=== PATIENT | male | born 1970 | race Caucasian/White ===

== ENCOUNTER 2020-05-04 12:14 | Inpatient (IN) | payer MEDICAID ==
[~2020-05-04] VITALS: Ht 188 cm; Wt 152.9 kg
[2020-05-04] VITALS (7 sets, daily range): BP systolic 95–145; BP diastolic 53–75
[2020-05-04] MEDS ORDERED: IV NORMAL SALINE 500 ML BAG IV ONE (12:30)
[2020-05-04] MEDS ORDERED: DOXYCYCLINE HYCLATE IV 100 MG in IV DEXTROSE 5% 250 ML IV ONE (12:30)
[2020-05-04] MEDS ORDERED: ALBUTEROL SULFATE 2.5 MG/3 ML NEBU NEB ONE ×2 (12:30)
[2020-05-04] MEDS ORDERED: methylPREDNISolone SOD SUCC 125 MG/2 ML VIAL IV ONE (12:30)
[2020-05-04] MEDS ORDERED: POTA-10 PO (12:38)
[2020-05-04] MEDS ORDERED: DOXA4TAB3 PO (12:38)
[2020-05-04] MEDS ORDERED: AMLO10TA7 PO (12:38)
[2020-05-04] MEDS ORDERED: CLON0.1T PO (12:38)
[2020-05-04] MEDS ORDERED: EPLE50TA9 PO (12:38)
[2020-05-04] MEDS ORDERED: CALC0.253 PO (12:38)
[2020-05-04] MEDS ORDERED: ATOR20TA PO (12:38)
[2020-05-04] MEDS ORDERED: LABE100T5 PO (12:38)
[2020-05-04] MEDS ORDERED: HYDR25TA4 PO (12:38)
[2020-05-04] MEDS ORDERED: ACET-73 PO (12:38)
[2020-05-04] MEDS ORDERED: LOSA100T31 PO (12:38)
[2020-05-04] MEDS ORDERED: CEFEPIME HCL 2 G in IV DEXTROSE 5% 100 ML IV ONE (12:45)
[2020-05-04] MEDS ORDERED: methylPREDNISolone SOD SUCC 125 MG/2 ML VIAL ONE (12:51)
[2020-05-04] MEDS ORDERED: CEFEPIME HCL 1 G VIAL ONE (12:51)
[2020-05-04] MEDS ORDERED: ALBUTEROL SULFATE 2.5 MG/3 ML NEBU ONE (12:51)
[2020-05-04 12:58] LABS: BASOPHILS % (AUTO) 0.4 % (0.0-2.0); HEMATOCRIT 26.7 % (36.7-47.1); HEMOGLOBIN 8.8 g/dL (12.5-16.3); LYMPHOCYTES # (AUTO) 0.6 K/uL (20.0-40.0); MEAN CORPUSCULAR HEMOGLOBIN 28.1 uug (23.8-33.4); MEAN CORPUSCULAR HGB CONC 33 g/dL (32.5-36.3); MONOCYTES # (AUTO) 0.9 K/uL (2.0-10.0); MONOCYTES % (AUTO) 10.7 % (0.0-11.0); NEUTROPHILS # (AUTO) 7.2 K/uL (1.8-8.9); NEUTROPHILS % (AUTO) 81.9 % (38.5-71.5); PLATELET COUNT (AUTO) 140 K/uL (152-348); RED BLOOD CELL COUNT(AUTO) 3.14 MIL/uL (4.06-5.63); WHITE BLOOD COUNT (AUTO) 8.8 K/uL (3.6-10.2)
[2020-05-04 13:09] LABS: CREATININE 4.1 mg/dL (0.6-1.3); POTASSIUM 3.1 mmol/L (3.5-5.1)
[2020-05-04 13:22] LABS: BILIRUBIN,DIRECT 0.2 mg/dL (0.0-0.2); BILIRUBIN,TOTAL 0.5 mg/dL (0.2-1.0); TOTAL PROTEIN, SERUM 6.7 g/dL (6.4-8.2)
[2020-05-04] MEDS ORDERED: HYDROCORTISONE SOD SUCCINATE 100 MG/2 ML VIAL IV ONE ×2 (13:45→13:55)
[2020-05-04] MEDS ORDERED: IV NORMAL SALINE 1000 ML BAG IV ONE (14:00)
--- NOTE | 2020-05-04 14:16 | NUR ---
SURAJ [email or web address].
[2020-05-04] MEDS ORDERED: NOREPINEPHRINE BITARTRATE 8 MG in IV NORMAL SALINE 250 ML IV PRN (14:45)
[2020-05-04] MEDS ORDERED: ACETAMINOPHEN 325 MG TABLET PO PRN (14:45)
[2020-05-04] MEDS ORDERED: ONDANSETRON 4 MG/2 ML VIAL IV PRN (14:45)
--- NOTE | 2020-05-04 14:47 | NUR ---
Full telephone SBAR report received by WOOD POLE TREATERACOSTA Jones.
[2020-05-04] MEDS ORDERED: ASPIRIN 81 MG TAB.CHEW PO ONE (15:00)
[2020-05-04] MEDS ORDERED: ASPIRIN 81 MG TAB.CHEW ONE (15:06)
[2020-05-04] MEDS ORDERED: ACETAMINOPHEN ES 500 MG TABLET PO PRN (15:15)
--- NOTE | 2020-05-04 15:15 | NUR ---
Patient is resting comfortably on gurney with eyes closed in a high hi's position, pending COVID-19 test results. Pt. admitted to CCU room 2 , under care of [facility] hospitalist SURAJ Lea Belongs List completed. MRSA swab collected and sent to lab. CCU nurse Josue accepted hands off [phone].
--- NOTE | 2020-05-04 15:39 | NUR ---
Patient now has intermittent congestive coughing, no phlegm seen, MD notified. Tissue box & emesis bag for sputum/phlegm offerred. Comfort & safety measures maintained. The CIRCULATOR for nephrology consult (Dr Ryan group) is also@bedside.
--- NOTE | 2020-05-04 17:15 | NUR ---
Patient is coughing more, his skin warm & moist. Repeat EKG done. Patient says that he feels so much better. MD is aware.
--- NOTE | 2020-05-04 17:35 | NUR ---
Pt received from ER. Pt A&Ox4. Pt on 3L NC saturating wnl. Pt stable and nad noted upon admission. Pt verbalizes understanding of plan of care.
[2020-05-04] MEDS: CLOTRIMAZOLE 1% CREAM 30 GM TUBE TOP SCH (17:59)
[2020-05-04] MEDS ORDERED: HYDROCORTISONE SOD SUCCINATE 100 MG/2 ML VIAL IV SCH (18:00)
--- NOTE | 2020-05-04 19:10 | NUR ---
received patient awake , oriented , able to follow command on 3l nc , no distress at this time , iv intact , continent
--- NOTE | 2020-05-04 19:20 | NUR ---
US TECH NOTIFIED OF ORDERS FOR DUPLEX OF BLE AND US KIDNEYS
[2020-05-04] MEDS: HYDROCORTISONE SOD SUCCINATE 100 MG/2 ML VIAL IV SCH (20:15)
[2020-05-04] MEDS: VANCOMYCIN IV 750 MG in IV DEXTROSE 5% 250 ML IV SCH (20:16)
[2020-05-04] MEDS: HEPARIN SODIUM,PORCINE 5,000 UNITS/ML VIAL SQ SCH (20:17)
[2020-05-04] MEDS: ATORVASTATIN 20 MG TABLET PO SCH (20:17)
[2020-05-04] MEDS: PIPERACILLIN SODIUM/TAZOBACTAM 3.375 G in IV DEXTROSE 5% 50 ML IV SCH (21:35)
--- NOTE | 2020-05-04 22:06 | NUR ---
US TECH IS HERE TO DO DOPPLER AND US OF THE KIDNEYS
[2020-05-04 22:16] LABS: *BILIRUBIN,URIN 1+ (NEGATIVE); *BLOOD, URINE 2+ (NEGATIVE); *CLARITY,URINE SLIGHTLY CLOUDY (CLEAR); *COLOR,URINE DARK YELLOW (YELLOW); *KETONES,URINE NEGATIVE (NEGATIVE); *UROBILINOGEN,URINE 0.2 E.U./dl (NORMAL); LEUKOCYTE ESTERASE ,URINE NEGATIVE (NEGATIVE); NITRITE, URINE NEGATIVE (NEGATIVE); PH,URINE 5.5 (5.0-8.0); UGLUCOSE NEGATIVE (NEGATIVE)
--- NOTE | 2020-05-04 22:17 | NUR ---
US OF THE KINEY AND DOPPLER OF BILATERAL LE DONE
[2020-05-05] VITALS (23 sets, daily range): BP systolic 100–154; BP diastolic 44–81
[2020-05-05] MEDS: PIPERACILLIN SODIUM/TAZOBACTAM 3.375 G in IV DEXTROSE 5% 50 ML IV SCH ×2 (05:19→14:13)
[2020-05-05] MEDS: PANTOPRAZOLE SODIUM 40 MG VIAL IV SCH (05:40)
--- NOTE | 2020-05-05 06:00 | NUR ---
awake , oriented , able to follow command , oxygen on 3l nc , denies distress or pain at this time ,
[2020-05-05] MEDS: CALCITRIOL 0.25 MCG CAPSULE PO SCH (08:13)
[2020-05-05] MEDS: HYDROCORTISONE SOD SUCCINATE 100 MG/2 ML VIAL IV SCH ×2 (08:13→17:15)
[2020-05-05] MEDS: HEPARIN SODIUM,PORCINE 5,000 UNITS/ML VIAL SQ SCH (08:14)
[2020-05-05] MEDS: CLOTRIMAZOLE 1% CREAM 30 GM TUBE TOP SCH ×2 (08:15→17:16)
[2020-05-05 09:18] LABS: CREATININE 3.9 mg/dL (0.6-1.3); POTASSIUM 3.2 mmol/L (3.5-5.1)
[2020-05-05] MEDS ORDERED: POTASSIUM CHLORIDE 20 MEQ TAB.PRT.SR PO ONE (10:30)
[2020-05-05] MEDS ORDERED: DEXTROSE 50% 50 ML DISP.SYRIN IV PRN (10:30)
--- NOTE | 2020-05-05 10:30 | NUR ---
Pt.was seen by with new orders.
[2020-05-05] MEDS ORDERED: IPRATROPIUM/ALBUTEROL SULFATE 14.7 GM INHALER INH SCH ×2 (10:45→11:30)
[2020-05-05 10:49] LABS: BASOPHILS # (AUTO) 0.1 K/uL (0.0-8.0); EOSINOPHILS % (AUTO) 0.3 % (0.0-7.0); HEMATOCRIT 29.4 % (36.7-47.1); HEMOGLOBIN 9.7 g/dL (12.5-16.3); LYMPHOCYTES # (AUTO) 0.7 K/uL (20.0-40.0); LYMPHOCYTES % (AUTO) 9.4 % (20.5-51.5); MEAN CORPUSCULAR HGB CONC 33 g/dL (32.5-36.3); MEAN CORPUSCULAR VOLUME 84.9 fL (73.0-96.2); MONOCYTES # (AUTO) 0.4 K/uL (2.0-10.0); MONOCYTES % (AUTO) 6.1 % (0.0-11.0); NEUTROPHILS # (AUTO) 5.9 K/uL (1.8-8.9); NEUTROPHILS % (AUTO) 83.2 % (38.5-71.5); PLATELET COUNT (AUTO) 136 K/uL (152-348); RED BLOOD CELL COUNT(AUTO) 3.46 MIL/uL (4.06-5.63); WHITE BLOOD COUNT (AUTO) 7.1 K/uL (3.6-10.2)
[2020-05-05] MEDS ORDERED: ALBUTEROL SULFATE 2.5 MG/ 0.5 ML NEBU NEB PRN (11:00)
[2020-05-05] MEDS ORDERED: IPRATROPIUM BROMIDE 0.5 MG/2.5 ML NEBU NEB PRN (11:00)
[2020-05-05 11:30] LABS: BACTERIA,URINE FEW /HPF (NONE SEEN); SQUAMOUS EPITHELIAL CELL,UR FEW /HPF (NONE SEEN); WBC,URINE 0-3 /HPF (0-3)
[2020-05-05] MEDS: ALBUTEROL SULFATE 2.5 MG/ 0.5 ML NEBU NEB SCH ×3 (11:30→19:34)
[2020-05-05] MEDS: IPRATROPIUM BROMIDE 0.5 MG/2.5 ML NEBU NEB SCH ×3 (11:30→19:34)
[2020-05-05 11:31] LABS: COARSE GRANULAR CASTS,URINE FEW /LPF; URINE AMORPHOUS URATE FEW /HPF
[2020-05-05] MEDS: BLOOD SUGAR DIAGNOSTIC 1 EACH STRIP VI SCH ×3 (11:41→20:40)
[2020-05-05] MEDS: INSULIN REGULAR, HUMAN 300 UNIT/3 ML VIAL SQ PRN ×3 (11:42→20:40)
[2020-05-05] MEDS: VANCOMYCIN IV 750 MG in IV DEXTROSE 5% 250 ML IV SCH (14:13)
[2020-05-05 14:35] LABS: *BILIRUBIN,URIN NEGATIVE (NEGATIVE); *BLOOD, URINE 3+ (NEGATIVE); *CLARITY,URINE SLIGHTLY CLOUDY (CLEAR); *COLOR,URINE YELLOW (YELLOW); *KETONES,URINE NEGATIVE (NEGATIVE); *UROBILINOGEN,URINE 0.2 E.U./dl (NORMAL); LEUKOCYTE ESTERASE ,URINE NEGATIVE (NEGATIVE); NITRITE, URINE NEGATIVE (NEGATIVE); UGLUCOSE NEGATIVE (NEGATIVE)
[2020-05-05 14:53] LABS: *CREATININE,URINE 142.9 mg/dL (30-125); *URINE TOTAL PROTEIN RANDOM 172.4 mg/dL (<150/24HR)
--- NOTE | 2020-05-05 16:09 | NUR ---
Pt.was watching TV,no s/s of acute distress,denies any pain.
[2020-05-05 18:19] LABS: BACTERIA,URINE RARE /HPF (NONE SEEN); SQUAMOUS EPITHELIAL CELL,UR FEW /HPF (NONE SEEN); URINE AMORPHOUS URATE MODERATE /HPF; WBC,URINE 0-3 /HPF (0-3)
--- NOTE | 2020-05-05 18:55 | NUR ---
Pt.was seen by MANAGEMENT AIDE:Mina with new orders,no changes in pt.condition,no s/s of distress or pain noted.
[2020-05-05] MEDS: CEFEPIME HCL 1 G in IV DEXTROSE 5% 50 ML IV SCH (20:24)
[2020-05-05] MEDS: APIXABAN 5 MG TABLET PO SCH (20:26)
[2020-05-05] MEDS: ATORVASTATIN 20 MG TABLET PO SCH (20:27)
[2020-05-06] VITALS (24 sets, daily range): BP systolic 111–186; BP diastolic 67–114
[2020-05-06 06:07] LABS: BASOPHILS % (AUTO) 0.3 % (0.0-2.0); EOSINOPHILS % (AUTO) 0.1 % (0.0-7.0); HEMATOCRIT 28.6 % (36.7-47.1); HEMOGLOBIN 9.4 g/dL (12.5-16.3); LYMPHOCYTES # (AUTO) 0.7 K/uL (20.0-40.0); LYMPHOCYTES % (AUTO) 6.1 % (20.5-51.5); MEAN CORPUSCULAR HEMOGLOBIN 27.8 uug (23.8-33.4); MEAN CORPUSCULAR HGB CONC 33 g/dL (32.5-36.3); MEAN CORPUSCULAR VOLUME 84.8 fL (73.0-96.2); MONOCYTES # (AUTO) 0.7 K/uL (2.0-10.0); MONOCYTES % (AUTO) 5.9 % (0.0-11.0); NEUTROPHILS # (AUTO) 10.3 K/uL (1.8-8.9); NEUTROPHILS % (AUTO) 87.6 % (38.5-71.5); PLATELET COUNT (AUTO) 138 K/uL (152-348); RED BLOOD CELL COUNT(AUTO) 3.37 MIL/uL (4.06-5.63); WHITE BLOOD COUNT (AUTO) 11.8 K/uL (3.6-10.2)
[2020-05-06 06:35] LABS: BILIRUBIN,TOTAL 0.4 mg/dL (0.2-1.0); CREATININE 3.4 mg/dL (0.6-1.3); MAGNESIUM 2.5 mg/dL (1.8-2.4); POTASSIUM 3.3 mmol/L (3.5-5.1); TOTAL PROTEIN, SERUM 7.1 g/dL (6.4-8.2)
[2020-05-06] MEDS: ALBUTEROL SULFATE 2.5 MG/ 0.5 ML NEBU NEB SCH ×4 (07:33→20:41)
[2020-05-06] MEDS: PANTOPRAZOLE SODIUM 40 MG VIAL IV SCH (07:33)
[2020-05-06] MEDS: IPRATROPIUM BROMIDE 0.5 MG/2.5 ML NEBU NEB SCH ×4 (07:33→20:41)
[2020-05-06] MEDS: VANCOMYCIN IV 750 MG in IV DEXTROSE 5% 250 ML IV SCH (08:04)
[2020-05-06] MEDS: HYDROCORTISONE SOD SUCCINATE 100 MG/2 ML VIAL IV SCH ×2 (08:04→17:12)
[2020-05-06] MEDS: CALCITRIOL 0.25 MCG CAPSULE PO SCH (08:04)
[2020-05-06] MEDS: POTASSIUM CHLORIDE 50 ML IV SCH ×2 (08:04→09:15)
[2020-05-06] MEDS: CLOTRIMAZOLE 1% CREAM 30 GM TUBE TOP SCH ×2 (08:05→17:12)
[2020-05-06] MEDS: APIXABAN 5 MG TABLET PO SCH ×2 (08:07→20:37)
--- NOTE | 2020-05-06 08:20 | NUR ---
Cardiology services Dr. Terrell in the unit, full report given to Dr. Terrell. See order history for new orders.
[2020-05-06] MEDS: BLOOD SUGAR DIAGNOSTIC 1 EACH STRIP VI SCH ×4 (08:24→20:46)
--- NOTE | 2020-05-06 08:30 | NUR ---
Attending MD Dr. Alvarenga in the unit, full report given to Dr. Alvarenga see order history for new orders.
[2020-05-06] MEDS: LABETALOL HCL 100 MG TABLET PO SCH ×2 (08:35→20:36)
[2020-05-06] MEDS: INSULIN REGULAR, HUMAN 300 UNIT/3 ML VIAL SQ PRN ×4 (08:36→20:45)
[2020-05-06 08:41] LABS: ABG BASE EXCESS -0.6 mmol/L; ABG HCO3 24.2 mmol/L; ABG PCO2 40.5 mmHg (35.0-45.0); ABG PH 7.394 (7.350-7.450); ABG PO2 105.1 mmHg (75.0-100.0); ABG SITE RIGHT RADIAL; COHb 0.3 % (0.5-1.5); O2Hb 97.8 % (94.0-97.0); VENT MODE Nasal Cannula
[2020-05-06] MEDS: AMLODIPINE 5 MG TABLET PO SCH (09:16)
[2020-05-06] MEDS ORDERED: VANCOMYCIN IV 500 MG in IV DEXTROSE 5% 100 ML IV ONE (10:00)
[2020-05-06] MEDS ORDERED: CLONIDINE HCL 0.1 MG TABLET PO PRN (10:15)
--- NOTE | 2020-05-06 10:30 | NUR ---
Pulmonary services Dr. Mckeon in the unit, full report given to Dr. Mckeon. See order history for new orders. Dr. Mckeon at bedside assessing patient and discussing plan of care w/ pt.
[2020-05-06] MEDS ORDERED: IV NORMAL SALINE 250 ML IV PRN (19:00)
[2020-05-06] MEDS: CEFEPIME HCL 1 G in IV DEXTROSE 5% 50 ML IV SCH (20:08)
[2020-05-06] MEDS: ATORVASTATIN 20 MG TABLET PO SCH (20:36)
[2020-05-06] MEDS ORDERED: diphenhydrAMINE 25 MG CAP PO PRN (21:15)
[2020-05-06] MEDS ORDERED: DOXYCYCLINE HYCLATE 100 MG TABLET ONE (21:34)
[2020-05-06] MEDS: DOXYCYCLINE HYCLATE 100 MG TABLET PO SCH (21:44)
[2020-05-07] VITALS (14 sets, daily range): BP systolic 116–161; BP diastolic 61–108
[2020-05-07 05:25] LABS: BASOPHILS % (AUTO) 0.4 % (0.0-2.0); HEMATOCRIT 27.9 % (36.7-47.1); HEMOGLOBIN 9.3 g/dL (12.5-16.3); LYMPHOCYTES # (AUTO) 0.9 K/uL (20.0-40.0); LYMPHOCYTES % (AUTO) 8.4 % (20.5-51.5); MEAN CORPUSCULAR HGB CONC 33 g/dL (32.5-36.3); MEAN CORPUSCULAR VOLUME 84.1 fL (73.0-96.2); MONOCYTES # (AUTO) 0.8 K/uL (2.0-10.0); NEUTROPHILS # (AUTO) 8.8 K/uL (1.8-8.9); NEUTROPHILS % (AUTO) 83.2 % (38.5-71.5); PLATELET COUNT (AUTO) 202 K/uL (152-348); RED BLOOD CELL COUNT(AUTO) 3.31 MIL/uL (4.06-5.63); WHITE BLOOD COUNT (AUTO) 10.5 K/uL (3.6-10.2)
[2020-05-07 05:33] LABS: CREATININE 2.9 mg/dL (0.6-1.3); POTASSIUM 3.3 mmol/L (3.5-5.1)
[2020-05-07 05:49] LABS: MAGNESIUM 2.3 mg/dL (1.8-2.4); PHOSPHOROUS 4.6 mg/dL (2.5-4.9); VANCOMYCIN,TROUGH 12.7 ug/mL (12.0-20.0)
[2020-05-07] MEDS ORDERED: VANCOMYCIN IV 1,250 MG in IV DEXTROSE 5% 250 ML IV SCH (07:00)
[2020-05-07] MEDS: IPRATROPIUM BROMIDE 0.5 MG/2.5 ML NEBU NEB SCH ×4 (07:19→20:30)
[2020-05-07] MEDS: ALBUTEROL SULFATE 2.5 MG/ 0.5 ML NEBU NEB SCH ×4 (07:19→20:30)
[2020-05-07] MEDS ORDERED: INSULIN REGULAR, HUMAN 300 UNIT/3 ML VIAL SQ PRN (08:00)
[2020-05-07] MEDS ORDERED: DEXTROSE 50% 50 ML DISP.SYRIN IV PRN (08:00)
[2020-05-07] MEDS: PANTOPRAZOLE SODIUM 40 MG TABLET.DR PO SCH (08:05)
[2020-05-07] MEDS: HYDROCORTISONE SOD SUCCINATE 100 MG/2 ML VIAL IV SCH ×2 (08:05→16:49)
[2020-05-07] MEDS: AMLODIPINE 5 MG TABLET PO SCH (08:06)
[2020-05-07] MEDS: LABETALOL HCL 100 MG TABLET PO SCH (08:07)
[2020-05-07] MEDS: CALCITRIOL 0.25 MCG CAPSULE PO SCH (08:07)
[2020-05-07] MEDS: DOXYCYCLINE HYCLATE 100 MG TABLET PO SCH ×2 (08:07→21:05)
[2020-05-07] MEDS: BLOOD SUGAR DIAGNOSTIC 1 EACH STRIP VI SCH ×4 (08:15→21:28)
[2020-05-07] MEDS: APIXABAN 5 MG TABLET PO SCH ×2 (08:17→21:03)
[2020-05-07] MEDS: CLOTRIMAZOLE 1% CREAM 30 GM TUBE TOP SCH ×2 (08:27→16:53)
[2020-05-07] MEDS: INSULIN REGULAR, HUMAN 300 UNIT/3 ML VIAL SQ PRN ×4 (08:28→21:29)
[2020-05-07] MEDS: GUAIFENESIN/CODEINE 5 ML LIQUID UDC PO PRN ×3 (08:36→19:22)
--- NOTE | 2020-05-07 08:45 | NUR ---
Pulmonary services, Dr. Watson in the unit to see and examine pt. report given orders to continue with care plan received.
--- NOTE | 2020-05-07 09:15 | NUR ---
Attending Wilber Ruiztrini Rush in the unit to see and examine pt. report given.
--- NOTE | 2020-05-07 10:42 | NUR ---
Cardiology services, Dr. Machuca in the unit to see and examine pt. report given, as informed pt. cleared from cardiac to be down-graded if needed.
[2020-05-07] MEDS ORDERED: FUROSEMIDE 40 MG/4 ML VIAL IV ONE (11:15)
[2020-05-07] MEDS ORDERED: POTASSIUM CHLORIDE 20 MEQ TAB.PRT.SR PO ONE (11:30)
[2020-05-07] MEDS: CEFEPIME HCL 1 G in IV DEXTROSE 5% 50 ML IV SCH (19:27)
[2020-05-07] MEDS: ATORVASTATIN 20 MG TABLET PO SCH (21:04)
[2020-05-07] MEDS: LABETALOL HCL 200 MG TABLET PO SCH (21:05)
--- NOTE | 2020-05-07 23:41 | NUR ---
PATIENT REFUSING CPAP MACHINE, SAID IT BOTHERS HIM, PT ON O2 @ 3L/M NC, STABLE, ENCOURAGED TO TAKE SLOW DEEP BREATHS , WITH Q4W/A AND Q4PRN NEB RX, STRONG RASPY COUGH, PT VERY ALERT AND COHERENT . Marvel PLUMMER RCP Addendum: 05/07/20 at 2343 by DIANE PLUMMER RT Amended: Links added.
[2020-05-08 00:01] VITALS: BP 134/84
[2020-05-08] MEDS: GUAIFENESIN/CODEINE 5 ML LIQUID UDC PO PRN (01:18)
[2020-05-08 04:00] VITALS: BP 127/80
[2020-05-08 05:20] LABS: BASOPHILS % (AUTO) 0.2 % (0.0-2.0); EOSINOPHILS % (AUTO) 0.2 % (0.0-7.0); HEMATOCRIT 28.9 % (36.7-47.1); HEMOGLOBIN 9.4 g/dL (12.5-16.3); LYMPHOCYTES # (AUTO) 1.7 K/uL (20.0-40.0); LYMPHOCYTES % (AUTO) 14.8 % (20.5-51.5); MEAN CORPUSCULAR HEMOGLOBIN 27.5 uug (23.8-33.4); MEAN CORPUSCULAR HGB CONC 32 g/dL (32.5-36.3); MEAN CORPUSCULAR VOLUME 85.1 fL (73.0-96.2); MONOCYTES # (AUTO) 1.2 K/uL (2.0-10.0); MONOCYTES % (AUTO) 10.4 % (0.0-11.0); NEUTROPHILS # (AUTO) 8.4 K/uL (1.8-8.9); NEUTROPHILS % (AUTO) 74.4 % (38.5-71.5); PLATELET COUNT (AUTO) 267 K/uL (152-348); WHITE BLOOD COUNT (AUTO) 11.3 K/uL (3.6-10.2)
[2020-05-08 05:44] LABS: CREATININE 2.5 mg/dL (0.6-1.3); PHOSPHOROUS 4.3 mg/dL (2.5-4.9)
[2020-05-08 06:04] LABS: POTASSIUM 2.8 mmol/L (3.5-5.1)
[2020-05-08 06:05] LABS: *OCCULT BLOOD STOOL NEGATIVE (NEGATIVE)
[2020-05-08 06:06] LABS: ABG BASE EXCESS 2.3 mmol/L; ABG PCO2 48.9 mmHg (35.0-45.0); ABG PH 7.376 (7.350-7.450); ABG PO2 76.6 mmHg (75.0-100.0); ABG SITE RIGHT RADIAL; ABG TOTAL HEMOGLOBIN 10.5 G/dL (13.5-18.0); COHb 0.3 % (0.5-1.5); MetHb 0.3 % (0.0-1.5); O2Hb 93.9 % (94.0-97.0); VENT MODE Nasal Cannula
[2020-05-08] MEDS ORDERED: POTASSIUM CHLORIDE 20 MEQ TAB.PRT.SR PO ONE ×5 (06:30→19:45)
[2020-05-08] MEDS: PANTOPRAZOLE SODIUM 40 MG TABLET.DR PO SCH (06:33)
[2020-05-08] MEDS: IPRATROPIUM BROMIDE 0.5 MG/2.5 ML NEBU NEB SCH ×4 (07:34→21:00)
[2020-05-08] MEDS: ALBUTEROL SULFATE 2.5 MG/ 0.5 ML NEBU NEB SCH ×4 (07:34→21:00)
[2020-05-08 08:00] VITALS: BP 121/60
[2020-05-08] MEDS: BLOOD SUGAR DIAGNOSTIC 1 EACH STRIP VI SCH ×4 (08:11→20:47)
[2020-05-08] MEDS: AMLODIPINE 5 MG TABLET PO SCH (08:28)
[2020-05-08] MEDS: HYDROCORTISONE SOD SUCCINATE 100 MG/2 ML VIAL IV SCH ×2 (08:28→16:54)
--- NOTE | 2020-05-08 08:30 | NUR ---
dr rupa fernández in the unit. titrate patient off O2.
[2020-05-08] MEDS: DOXYCYCLINE HYCLATE 100 MG TABLET PO SCH (08:31)
[2020-05-08] MEDS: LABETALOL HCL 200 MG TABLET PO SCH ×2 (08:31→20:32)
[2020-05-08] MEDS: CALCITRIOL 0.25 MCG CAPSULE PO SCH (08:32)
[2020-05-08] MEDS: APIXABAN 5 MG TABLET PO SCH ×2 (08:36→20:31)
--- NOTE | 2020-05-08 08:44 | NUR ---
doctor emmanuel in the unit ordered additional 80 of potassium and will start patient on lasix.
--- NOTE | 2020-05-08 08:45 | NUR ---
per cardio and pulmo patient can go to tele
--- NOTE | 2020-05-08 08:48 | NUR ---
per dr. benitez give potassium replacement prior to giving lasix orders
--- NOTE | 2020-05-08 08:50 | NUR ---
made doctor mcarthur aware that patient has episodes of bradycardia through the night as low as 30's.
[2020-05-08] MEDS ORDERED: POTASSIUM CHLORIDE 20 MEQ TAB.PRT.SR PO SCH (09:00)
[2020-05-08] MEDS: FUROSEMIDE 40 MG/4 ML VIAL IV SCH ×2 (09:22→20:28)
[2020-05-08] MEDS: CLOTRIMAZOLE 1% CREAM 30 GM TUBE TOP SCH ×2 (10:00→16:55)
--- NOTE | 2020-05-08 11:38 | NUR ---
spoke to michael SHANE. patient transfered to room 310. updated and full report given to charge nurse michael shane. primary nurse will be [place] RN.
[2020-05-08] MEDS: INSULIN REGULAR, HUMAN 300 UNIT/3 ML VIAL SQ PRN ×2 (11:45→16:58)
--- NOTE | 2020-05-08 12:15 | NUR ---
received pt per w/c awake alert/oriented x 4, on room air, denies of shortness of breath or pain, tele applied- afib on the 80's, midline on right upper arm- no swelling/redness noted onsite, oriented to bed control and call light, lunch served, safety measures initiated.
--- NOTE | 2020-05-08 12:40 | NUR ---
RT at bedside for breathing treatment
[2020-05-08 12:52] VITALS: BP 115/66
--- NOTE | 2020-05-08 13:20 | NUR ---
ASSUMED CARE OF THIS PATIENT AT THIS TIME HE IS OBSERVED TO BE IN BED SLEEPING WITH HIS EYES CLOSED WITH O2 AT 2L/M BY NASAL CANULA HOB UP HE IS SNORING VERY HEAVILY BUT RESPIRATIONS IS NOT LABORED AT THIS TIME SKIN IS WARM AND DRY. TELE INTACT ITS AFIB CONTROLLED .RIGHT UPPER ARM MIDLINE OBSERVED INTACT CALL LIGHTS AND PERSONAL BELONGINGS ARE WITHIN EASY REACH WILL CONTINUE TO OBSERVE AND EVALUATE.
--- NOTE | 2020-05-08 15:07 | NUR ---
ASHKAN NOBLES CLINICAL EDUCATION CONSULTANT FOR DR SOLORZANO HERE TI SEE PATIENT WITH NEW ORDERS AND NOTED.PATIENT IS SITTING UP ON THE CHAIR WITH O2 SLEEPING ON AND OFF ENCOURAGED TO GET INTO BED TO AVOID SLIPPING OFF THE CHAIR BUT STATED MORE COMFORTABLE ON THE CHAIR AT THIS TIME.WILL CONTINUE TO OBSERVE.
[2020-05-08 16:00] VITALS: BP 130/80
--- NOTE | 2020-05-08 16:33 | NUR ---
HAND HELD NEBULIZER ADMINISTERED ORDERED AND THE RT TRIED TO REAPPLY THE O2 CANULLA PATIENT IS SEEN REFUSING TO HAVE THE CANULLA A REAPPLIED BUT HE IS BREATHING HEAVY AND ADVISED TO KEEP THE CANULLA ON TO ASSIST HIM BREATH EASIER AND HE AGREED.
--- NOTE | 2020-05-08 17:05 | NUR ---
SLEEPING BUT EASILY AROUSABLE SNORING VERY HEAVILY WITH O2 AT THIS TIME DUE MEDICATIONS GIVEN.
--- NOTE | 2020-05-08 18:51 | NUR ---
MIRYAM CHANCERY CLERK HERE TO SEE PATIENT WITH NEW ORDERS AND NOTED
--- NOTE | 2020-05-08 19:46 | NUR ---
Contacted Dr. Beaulieu in regards to patients Potassium level of 3.3. Given order of one time K-Dur 40 to be given PO. Will continue to monitor and assess.
[2020-05-08] MEDS: ATORVASTATIN 20 MG TABLET PO SCH (20:28)
[2020-05-08 20:46] VITALS: BP 150/58
--- NOTE | 2020-05-08 23:00 | NUR ---
Warm blanket given to patient. No report of pain, no SOB, no distress, VSS. Patient made aware to report any feelings of pain and use call light. Will continue to monitor and assess.
[2020-05-09] VITALS: BP_SYST 134; BP_SYST 142; BP_DIAS 54; BP_DIAS 58
--- NOTE | 2020-05-09 01:00 | NUR ---
Pt awake and watching football upon entry. No pain, no SOB, no distress, afebrile, HOB elevated, O2 running at prescribed rate, bed at lowest, call light within reach. VSS. Will continue to monitor and assess.
--- NOTE | 2020-05-09 03:00 | NUR ---
Patient sound asleep upon entry to room. No pain, no SOB, no distress, afebrile, HOB elevated, O2 running at prescribed rate, bed at lowest, call light within reach. VSS. Will continue to monitor and assess.
[2020-05-09 04:00] VITALS: BP 134/54
--- NOTE | 2020-05-09 05:28 | NUR ---
VSS. No report/signs of pain, bed at lowest position, call light within reach, HOB elevated, no SOB, afebrile. Patient snores loudly throughout the night, i had gone into the room many times to check on him and everything was alright. VSS everytime they were checked. Will endorse to oncoming nurse.
[2020-05-09] MEDS: PANTOPRAZOLE SODIUM 40 MG TABLET.DR PO SCH (06:30)
[2020-05-09] MEDS: BLOOD SUGAR DIAGNOSTIC 1 EACH STRIP VI SCH ×4 (06:32→20:40)
[2020-05-09 06:43] LABS: BASOPHILS % (AUTO) 0.2 % (0.0-2.0); EOSINOPHILS # (AUTO) 0.2 K/uL (0.0-0.7); EOSINOPHILS % (AUTO) 1.5 % (0.0-7.0); HEMATOCRIT 30.1 % (36.7-47.1); HEMOGLOBIN 9.8 g/dL (12.5-16.3); LYMPHOCYTES # (AUTO) 2.4 K/uL (20.0-40.0); LYMPHOCYTES % (AUTO) 19.4 % (20.5-51.5); MEAN CORPUSCULAR HEMOGLOBIN 27.9 uug (23.8-33.4); MEAN CORPUSCULAR HGB CONC 33 g/dL (32.5-36.3); MEAN CORPUSCULAR VOLUME 85.7 fL (73.0-96.2); MONOCYTES # (AUTO) 1.3 K/uL (2.0-10.0); MONOCYTES % (AUTO) 10.4 % (0.0-11.0); NEUTROPHILS # (AUTO) 8.6 K/uL (1.8-8.9); NEUTROPHILS % (AUTO) 68.5 % (38.5-71.5); PLATELET COUNT (AUTO) 356 K/uL (152-348); RED BLOOD CELL COUNT(AUTO) 3.51 MIL/uL (4.06-5.63); WHITE BLOOD COUNT (AUTO) 12.5 K/uL (3.6-10.2)
[2020-05-09 07:12] LABS: CREATININE 2.1 mg/dL (0.6-1.3); MAGNESIUM 1.6 mg/dL (1.8-2.4); PHOSPHOROUS 3.5 mg/dL (2.5-4.9)
--- NOTE | 2020-05-09 07:15 | NUR ---
PATIENT RECEIVED IN BED AWAKE ALERT AND ORIENTED WITH O2 AT 2L/M BY NASAL CANULLA DENIES SHORTNESS OF BREATH AT THIS TIME MIDLINE RIGHT UPPER ARM REMAINS INTACT CALL LIGHTS AND PERSONAL BELONGINGS ARE WITHIN EASY REACH MADE COMFORTABLE WILL CONTINUE TO OBSERVE.
[2020-05-09] MEDS: ALBUTEROL SULFATE 2.5 MG/ 0.5 ML NEBU NEB SCH ×4 (07:42→19:29)
[2020-05-09] MEDS: IPRATROPIUM BROMIDE 0.5 MG/2.5 ML NEBU NEB SCH ×4 (07:42→19:29)
--- NOTE | 2020-05-09 07:55 | NUR ---
PATIENT SEEN AND EXAMINED BY ADOLFO CORRAL WITH NEW ORDERS POTASSIUM LEVEL IS 3.0 WITH REPLACEMENT ORDER AND NOTED.
[2020-05-09] MEDS ORDERED: MAGNESIUM OXIDE 400 MG TABLET PO ONE (08:00)
[2020-05-09] MEDS ORDERED: POTASSIUM CHLORIDE 20 MEQ TAB.PRT.SR PO ONE (08:00)
[2020-05-09] MEDS: FUROSEMIDE 40 MG/4 ML VIAL IV SCH (08:41)
[2020-05-09] MEDS: CALCITRIOL 0.25 MCG CAPSULE PO SCH (08:42)
[2020-05-09] MEDS: HYDROCORTISONE SOD SUCCINATE 100 MG/2 ML VIAL IV SCH ×2 (08:42→16:35)
[2020-05-09] MEDS: LABETALOL HCL 200 MG TABLET PO SCH ×2 (08:43→20:22)
[2020-05-09] MEDS: CLOTRIMAZOLE 1% CREAM 30 GM TUBE TOP SCH ×2 (08:44→16:35)
[2020-05-09] MEDS: AMLODIPINE 5 MG TABLET PO SCH (08:44)
[2020-05-09] MEDS: APIXABAN 5 MG TABLET PO SCH ×2 (08:48→20:38)
[2020-05-09] MEDS: MAGNESIUM SULFATE/D5W 100 ML IV SCH ×2 (09:55→10:59)
--- NOTE | 2020-05-09 09:55 | NUR ---
MAGNESSIUM LEVEL IS 1.6 WITH REPLACEMENT ORDERS.
[2020-05-09 11:31] VITALS: BP 101/48
[2020-05-09] MEDS: INSULIN REGULAR, HUMAN 300 UNIT/3 ML VIAL SQ PRN ×3 (11:33→20:37)
[2020-05-09] MEDS: POTASSIUM CHLORIDE 50 ML IV SCH ×2 (11:58→13:28)
--- NOTE | 2020-05-09 14:20 | NUR ---
PATIENT RECEIVED A TOTAL OF 40 MEQ POTASSIUM ORAL AND 20 MEQ POTASSIUM IVPB AND TOLERATED WELL
[2020-05-09 15:06] LABS: A/G RATIO 0.5 (0.7-1.7); ALBUMIN 2.1 g/dL (2.9-4.4); ALPHA-1-GLOBULIN 0.4 g/dL (0.0-0.4); ALPHA-2-GLOBULIN 1.2 g/dL (0.4-1.0); GAMMA GLOBULIN 1.4 g/dL (0.4-1.8); M-SPIKE Not Observed g/dL (Not Observed)
[2020-05-09 16:00] VITALS: BP 118/62
--- NOTE | 2020-05-09 18:00 | NUR ---
RESTING IN BED DUE MEDS GIVEN NO S/S OF HYPO/HYPERGLYCEMIC REACTIONS AT THIS TIME REMAIN ON O2 WITH NO SOB NOT IN DISTRESS.
--- NOTE | 2020-05-09 19:45 | NUR ---
Received patient in bed awake and alert verbally responsive.HOB elevated with O2 inhalation at 2 LPM via NC saturating at 93 %.Denies SOb.No s/s of distress noted at this time.Midline on Right upper arm 18 g patent and intact.Arsenio lower ext edema.Elevated legs with pillow.Patient ambulates to the bathroom.Compliant with medication.Call light with in reach.Will continue to monitor.
[2020-05-09 20:04] VITALS: BP 122/58
[2020-05-09] MEDS: ATORVASTATIN 20 MG TABLET PO SCH (20:22)
[2020-05-09] MEDS: GUAIFENESIN/CODEINE 5 ML LIQUID UDC PO PRN (23:59)
[2020-05-10 00:11] VITALS: BP 130/54
[2020-05-10 04:00] VITALS: BP 149/67
[2020-05-10] MEDS: BLOOD SUGAR DIAGNOSTIC 1 EACH STRIP VI SCH ×2 (06:30→11:35)
[2020-05-10] MEDS: PANTOPRAZOLE SODIUM 40 MG TABLET.DR PO SCH (06:30)
--- NOTE | 2020-05-10 06:38 | NUR ---
Patient slept intermittently.Denies SOB,No s/s of distress through out the night.O2 saturation at 95% on 2 LPM via NC.Patient has been asking when he gets to go home.BS checked 110.Will endorse to oncoming shift.
[2020-05-10] MEDS: ALBUTEROL SULFATE 2.5 MG/ 0.5 ML NEBU NEB SCH ×2 (06:51→10:58)
[2020-05-10] MEDS: IPRATROPIUM BROMIDE 0.5 MG/2.5 ML NEBU NEB SCH ×2 (06:51→10:58)
[2020-05-10 07:05] LABS: BASOPHILS % (AUTO) 0.1 % (0.0-2.0); EOSINOPHILS # (AUTO) 0.2 K/uL (0.0-0.7); EOSINOPHILS % (AUTO) 1.4 % (0.0-7.0); HEMATOCRIT 26.9 % (36.7-47.1); HEMOGLOBIN 8.9 g/dL (12.5-16.3); LYMPHOCYTES % (AUTO) 16.4 % (20.5-51.5); MEAN CORPUSCULAR HEMOGLOBIN 28.1 uug (23.8-33.4); MEAN CORPUSCULAR HGB CONC 33 g/dL (32.5-36.3); MEAN CORPUSCULAR VOLUME 85.3 fL (73.0-96.2); MONOCYTES % (AUTO) 8.5 % (0.0-11.0); NEUTROPHILS # (AUTO) 8.9 K/uL (1.8-8.9); NEUTROPHILS % (AUTO) 73.6 % (38.5-71.5); PLATELET COUNT (AUTO) 361 K/uL (152-348); RED BLOOD CELL COUNT(AUTO) 3.16 MIL/uL (4.06-5.63); WHITE BLOOD COUNT (AUTO) 12.1 K/uL (3.6-10.2)
[2020-05-10 07:32] LABS: CREATININE 1.9 mg/dL (0.6-1.3); MAGNESIUM 1.8 mg/dL (1.8-2.4); PHOSPHOROUS 3.8 mg/dL (2.5-4.9)
--- NOTE | 2020-05-10 07:45 | NUR ---
CALL RECEIVED FROM LAB POTASSIUM LEVEL IS 2.7 TODAY PATIENT IS AWAKE ALERT AND ORIENTED WANTS TO KNOW WHEN HE WILL BE GOING HOME INFORMED HIM THAT WE WILL WAIT FOR THE DOCTORS ORDER FIRST AND HE EXPRESSED UNDERSTANDING.REMAIN ON O2 AT 2L/M BY NASAL CANULLA WITH NO SOB AT THIS TIME MID LINE RIGHT UPPER ARM REMAIN INTACT AT THIS TIME CALL LIGHTS AND PERSONAL BELONGINGS ARE WITHIN EASY REACH MADE COMFORTABLE WILL CONTINUE TO OBSERVE.
[2020-05-10 07:47] LABS: POTASSIUM 2.7 mmol/L (3.5-5.1)
--- NOTE | 2020-05-10 08:00 | NUR ---
DR CAREY THE DECAL DECORATOR HERE NOTIFIED HIM OF POTASSIUM LEVEL AT 2.7 STATED OKAY WILL SEE PATIENT AND WILL REPLACE.
[2020-05-10] MEDS ORDERED: POTASSIUM CHLORIDE 20 MEQ POWDER PACKET GT ONE (08:15)
[2020-05-10] MEDS: CALCITRIOL 0.25 MCG CAPSULE PO SCH (08:34)
[2020-05-10] MEDS: AMLODIPINE 5 MG TABLET PO SCH (08:36)
[2020-05-10] MEDS: HYDROCORTISONE SOD SUCCINATE 100 MG/2 ML VIAL IV SCH (08:36)
[2020-05-10] MEDS: APIXABAN 5 MG TABLET PO SCH (08:38)
[2020-05-10] MEDS: CLOTRIMAZOLE 1% CREAM 30 GM TUBE TOP SCH (08:39)
--- NOTE | 2020-05-10 08:40 | NUR ---
DR POWELL SEEN PATIENT WITH REPLACEMENT ORDERS FOR POTASSIUM
[2020-05-10] MEDS: POTASSIUM CHLORIDE 50 ML IV SCH ×2 (08:50→10:38)
[2020-05-10] MEDS ORDERED: LABETALOL HCL 200 MG TABLET PO SCH (09:00)
--- NOTE | 2020-05-10 11:18 | NUR ---
PATIENT SEEN AND EXAMINED BY GRABIEL RUELAS WITH ORDER TO REPEAT POTASSIUM AT 1200 AND ALSO TO STOP THE O2 AND CHECK HIS SATS ON ROOM AIR TO DETERMINE IF HE WILL BE NEEDING O2 AT HOME..
[2020-05-10 11:30] VITALS: BP 131/61
[2020-05-10] MEDS: INSULIN REGULAR, HUMAN 300 UNIT/3 ML VIAL SQ PRN (11:45)
[2020-05-10] MEDS ORDERED: POTASSIUM CHLORIDE 20 MEQ TAB.PRT.SR PO ONE (13:15)
--- NOTE | 2020-05-10 13:30 | NUR ---
POTASSIUM RECHECKED AND ITS 3.4 GRABIEL BIOMETRICS TECHNICIAN AWARE.
--- NOTE | 2020-05-10 13:40 | NUR ---
POTASSIUM REPLACEMENT 20 MEQ PO GIVEN ORDERED PATIENT IS ANXIOUS TO GO HOME [employer] DEVELOPER MINICA AWARE.
--- NOTE | 2020-05-10 13:45 | NUR ---
PATIENT AMBULATED IN THE HALLWAY WITH THE PHYSICAL THERAPY ON ROOM AIR WITH O2 SAT AT 95 PERCENT ENDURANCE WAS GOOD.
[2020-05-10 13:46] LABS: EOSINOPHILS % (MANUAL) 2 % (0-8); LYMPHOCYTES % (MANUAL) 16 % (20-40); MONOCYTES % (MANUAL) 9 % (2-10)
[2020-05-10 13:47] LABS: NEUTROPHILS % (MANUAL) 73 % (42-75)
[2020-05-10] MEDS ORDERED: CLOT30CR24 TOP (13:47)
[2020-05-10] MEDS ORDERED: FLUC200T8 PO (13:47)
[2020-05-10] MEDS ORDERED: ALBU2.5V13 NEB ×2 (13:47)
[2020-05-10] MEDS ORDERED: LABE200T8 PO (13:47)
[2020-05-10] MEDS ORDERED: METH4TAB3 PO (13:47)
[2020-05-10] MEDS ORDERED: ALBU18HF2 INH (13:47)
--- NOTE | 2020-05-10 14:20 | NUR ---
MID LINE REMOVED PATIENT DISCHARGED PICKED UP BY HIS BROTHER EHTAL IN SATISFACTORY CONDITION WITH DISCHARGE INSTRUCTIONS AND PRESCRIPTIONS PATIENT WAS UNABLE TO PROVIDE HIS PHARMACY INFO PATIENT INSTRUCTED TO CALL FOR A FOLLOW UP APPOINTMENT WITH HIS PRIMARY DOCTOR WITHIN ONE WEEK AND HE EXPRESSED UNDERSTANDING ON ROOM AIR WITH NO SHORTNESS OF BREATH AT THIS TIME.
== END 2020-05-10 14:20 | disposition home or self-care (01) | DRG 720 ==
LOC: ER 12:14 → CCU 17:17 → MEDSURG3 05-08 11:55 → TELE3 05-08 12:15
PROVIDERS: ADMIT Registered Nurse; ATTEND Nurse Practitioner Acute Care
PROC: B546ZZA Ultrasonography of Right Subclavian Vein, Guidance (ICD-10-PCS; principal; 2020-05-07)
PROC: 05H533Z Insertion of Infusion Device into Right Subclavian Vein, Percutaneous Approach (ICD-10-PCS; principal; 2020-05-07)
DX: A41.9 Sepsis, unspecified organism (principal); L03.116 Cellulitis of left lower limb; L03.115 Cellulitis of right lower limb; R65.21 Severe sepsis with septic shock; E66.01 Morbid (severe) obesity due to excess calories; Z68.41 Body mass index [BMI] 40.0-44.9, adult; I13.0 Hypertensive heart and chronic kidney disease with heart failure and stage 1 through stage 4 chronic kidney disease, or unspecified chronic kidney disease; D63.8 Anemia in other chronic diseases classified elsewhere; E78.5 Hyperlipidemia, unspecified; E87.2 Acidosis; E87.6 Hypokalemia; I21.A1 Myocardial infarction type 2; I48.91 Unspecified atrial fibrillation; J96.01 Acute respiratory failure with hypoxia; N17.0 Acute kidney failure with tubular necrosis; N18.9 Chronic kidney disease, unspecified; M62.82 Rhabdomyolysis; Z79.01 Long term (current) use of anticoagulants; Z87.01 Personal history of pneumonia (recurrent); I50.33 Acute on chronic diastolic (congestive) heart failure; E87.1 Hypo-osmolality and hyponatremia; R74.01 Elevation of levels of liver transaminase levels; I87.2 Venous insufficiency (chronic) (peripheral); G47.30 Sleep apnea, unspecified; J18.9 Pneumonia, unspecified organism; B36.9 Superficial mycosis, unspecified
CPT/HCPCS: 36415; 36600; 70030-TC; 71045; 76705; 76770; 82785; 83605; 83615; 83735; 83970; 84100; 84132; 84155; 84156; 84165; 84300; 85025; 85730; 86140; 87040; 87070; 87086; 87400; 93005; 93307; 94640; A4663; C9113; G0378; J0692; J1644; J1720; J1815; J1940; J2543; J2930; J3370; J3475; J3480; J3490; J3590; J7030; J7040; J7050; J7060; U0003